=== PATIENT | male | born 2000 | race Caucasian/White ===

== ENCOUNTER 2018-09-10 16:35 | Emergency (ER) | payer OTHER ==
[~2018-09-10] VITALS: Ht 172.7 cm; Wt 67.1 kg
[2018-09-10 16:47] VITALS: BP 146/96; Ht 172.7 cm; Wt 67.1 kg
== END 2018-09-10 18:55 | disposition home or self-care (01) ==
LOC: ED 16:35
DX: S63.254A Unspecified dislocation of right ring finger, initial encounter (principal); W51.XXXA Accidental striking against or bumped into by another person, initial encounter; Y93.67 Activity, basketball; Y92.310 Basketball court as the place of occurrence of the external cause; Y99.8 Other external cause status
CPT/HCPCS: J1885; J2001

== ENCOUNTER 2019-08-09 23:29 | Emergency (ER) | payer OTHER, MEDICAID ==
[~2019-08-09] VITALS: Ht 172.7 cm; Wt 68.2 kg
[2019-08-09 23:36] VITALS: BP 131/87; Ht 172.7 cm; Wt 68.2 kg
== END 2019-08-10 00:14 | disposition left against medical advice (07) ==
LOC: ED 23:29
DX: Z53.21 Procedure and treatment not carried out due to patient leaving prior to being seen by health care provider (principal)